=== PATIENT | male | born 1955 | race Caucasian/White ===

== ENCOUNTER 2020-10-09 13:13 | Inpatient (IN) | payer OTHER ==
[~2020-10-09] VITALS: Ht 165.1 cm; Wt 85.7 kg
[2020-10-09 13:30] VITALS: BP 145/77
[2020-10-09] MEDS ORDERED: LISINOPRIL PO (13:36)
[2020-10-09] MEDS ORDERED: BLOOD PRESSURE PO (13:37)
[2020-10-09 14:08] LABS: ABSOLUTE LYMPHOCYTES 0.5 thou/uL (0.8-5.3); ABSOLUTE MONOCYTES 0.6 thou/uL (0.0-1.2); ABSOLUTE NEUTROPHILS 6.4 thou/uL (1.6-8.1); BASOPHILS 0.2 %; HEMATOCRIT 38.4 % (42.0-52.0); HEMOGLOBIN 12.9 gm/dL (14.0-18.0); LYMPHOCYTES 7.1 %; MCH 28.5 pg (26.0-34.0); MCHC 33.7 g/dL (28.0-37.0); MCV 84.7 fL (80.0-100.0); MONOCYTES 7.8 %; MPV 10.1 fl. (7.2-11.1); NUCLEATED RBCS 0 /100WBC; PLATELET COUNT* 77 thou/uL (150-400); POLYS 84.9 %; RBC 4.53 mil/uL (4.50-6.00); RDW-CV 13.8 % (10.5-14.5); WBC 7.5 thou/uL (4.0-11.0)
[2020-10-09 14:17] LABS: CALCIUM 8.4 mg/dL (8.5-10.1); CREATININE 2.6 mg/dL (0.6-1.3); POTASSIUM 4.3 mmol/L (3.5-5.1)
[2020-10-09 14:22] LABS: BE 2.8 mmol/L (-2 to +3); PCO2 46.6 mmHg (35.0-45.0); PO2 113.8 mmHg (75.0-100.0); pH 7.402 (7.340-7.450)
[2020-10-09 14:27] LABS: ALBUMIN 3.5 g/dL (3.4-5.0); TOTAL BILIRUBIN 0.4 mg/dL (<0.1-1.0); TOTAL PROTEIN 7.1 g/dL (6.4-8.2)
--- NOTE | 2020-10-09 14:39 | EKG ---
[place] [address] ELECTROCARDIOGRAM REPORT Name: RADHA PHELPS Room: [facility]#: [id number] Admission: 10/09/20 Attend Phys: Discharge: Date of : 55 Date of Service: 10/09/20 1354 Report #: [id number] THIS REPORT FOR: //name// [facility] ED Test Date: 2020-10-09 Test Time: 13:54:13 Pat Name: RADHA PHELPS Department: Room: Gender: Valet Manager: : 1955 Requested By: Jono Moy Order Number: [id number] MD: Timoteo Mckeon Measurements Intervals Fine Rate: 86 P: 88 SD: 164 QRS: 82 QRSD: 91 T: 91 QT: 375 QTc: 449 Interpretive Statements Sinus rhythm Borderline right axis deviation Nonspecific T abnormalities, lateral leads No previous ECG available for comparison Electronically Signed On 10-09-2020 14:39:53 CDT by Timoteo Mckeon [email or web address] <ELECTRONICALLY SIGNED> By: Timoteo Mckeon MD, [facility] 10/09/20 1439 1354 1354 Timoteo Mckeon MD, FAC /EPI
[2020-10-09] MEDS ORDERED: DEXAMETHASONE 44 M1 PO (15:14)
[2020-10-09] MEDS ORDERED: VENTOLIN HFA 1818 GM INH (15:14)
[2020-10-09] MEDS ORDERED: ZPAK PO (15:14)
[2020-10-09] MEDS ORDERED: ZOFRAN ODT4 MG DISSOLVE (15:14)
[2020-10-09 19:56] VITALS: BP 165/71
[2020-10-09 20:20] VITALS: BP 164/69
[2020-10-09] MEDS ORDERED: LANTUS SUBQ (22:39)
[2020-10-09] MEDS ORDERED: HYDROCHLOROTH12.5 M2 PO (22:40)
[2020-10-10 00:23] VITALS: BP 168/65
[2020-10-10 04:30] VITALS: BP 137/64
[2020-10-10 08:00] VITALS: BP 148/70
[2020-10-10 12:14] VITALS: BP 117/79
[2020-10-10 16:00] VITALS: BP 119/77
[2020-10-10 20:00] VITALS: BP 152/75
[2020-10-11 00:26] VITALS: BP 166/85
[2020-10-11 04:09] VITALS: BP 118/66; BP 171/77
[2020-10-11 07:45] VITALS: BP 149/72
[2020-10-11 08:00] VITALS: BP 133/78
[2020-10-11] MEDS ORDERED: DEXAMETHASONE6 MG PO (10:37)
[2020-10-11] MEDS ORDERED: LISINOPRIL5 MG PO (10:37)
[2020-10-11] MEDS ORDERED: ALBUTEROL SULFAT2 MG PO (10:37)
[2020-10-11] MEDS ORDERED: CEFDINIR300 MG PO (10:37)
[2020-10-11 11:28] LABS: ALBUMIN 3.5 g/dL (3.4-5.0); CALCIUM 8.6 mg/dL (8.5-10.1); CREATININE 2.1 mg/dL (0.6-1.3); POTASSIUM 4.2 mmol/L (3.5-5.1); TOTAL BILIRUBIN 0.3 mg/dL (<0.1-1.0); TOTAL PROTEIN 7.3 g/dL (6.4-8.2)
[2020-10-11 14:36] VITALS: BP 186/86
[2020-10-11 14:43] VITALS: BP 186/86
== END 2020-10-11 15:15 | disposition home or self-care (01) | DRG 177 ==
LOC: M.ERS 13:13 → M.TBA-ER 15:34 → M.ORTHSURG 15:34
PROVIDERS: Family Medicine; ADMIT Internal Medicine; ATTEND Internal Medicine
DX: U07.1 COVID-19 (principal); J96.01 Acute respiratory failure with hypoxia; J12.82 Pneumonia due to coronavirus disease 2019; E11.22 Type 2 diabetes mellitus with diabetic chronic kidney disease; I12.9 Hypertensive chronic kidney disease with stage 1 through stage 4 chronic kidney disease, or unspecified chronic kidney disease; J44.9 Chronic obstructive pulmonary disease, unspecified; E11.65 Type 2 diabetes mellitus with hyperglycemia; N18.9 Chronic kidney disease, unspecified; Z79.899 Other long term (current) drug therapy; Z87.891 Personal history of nicotine dependence